=== PATIENT | male | born 1965 | race Caucasian/White ===

== ENCOUNTER 2019-03-25 13:20 | Inpatient (IN) | payer MEDICAID, MEDICARE ==
[~2019-03-25] VITALS: Ht 177.8 cm; Wt 95.3 kg
[~2019-03-25 13:20] MED LIST: KEP500 PO; PHEN100C4 PO
--- NOTE | 2019-03-25 13:20 | NUR ---
Patient BIBA ALS accompanied by Guanakito RILEY, transferred to bed 1. RN evaluating patient at bedside.
[2019-03-25 13:28] VITALS: BP 139/73
--- NOTE | 2019-03-25 13:30 | NUR ---
RIGO FROM DAY CAMP PROGRAM PER EMS PATIENT HAD SEIZURE X 3 PRIOR TO ARIVAL LASTING 1 MINUTE EACH STARTING AT 12:44PM. PATIENT CONFUSED, OPENED EYES TO VERBAL COMMAND. B/S AT BEDSIDE 168, PRIOR TO ARIVAL 213. 22 G RAC BY EMS. O2 AT 2L NASAL CANULA. HX: SEIZURES Addendum: 03/25/19 at 1410 by [email or web address] no seizure at arrival.
[2019-03-25] MEDS ORDERED: LORazepam 2 MG/ML VIAL ONE ×2 (13:40→13:46)
--- NOTE | 2019-03-25 13:40 | NUR ---
seizure 1 mins.
[2019-03-25] MEDS ORDERED: levETIRAcetam 100 MG/ML VIAL IV ONE ×2 (13:42→20:23)
[2019-03-25] MEDS ORDERED: LORazepam 2 MG/ML VIAL IVP ONE ×2 (13:55→15:35)
[2019-03-25] MEDS ORDERED: levETIRAcetam 1,000 MG in NACL 0.9% 100 ML IV ONE (13:55)
--- NOTE | 2019-03-25 14:19 | NUR ---
PATIENT STATES HE WANTS IV REMOVED AND REQUESTS WATER, ASKING CAREGIVER.
--- NOTE | 2019-03-25 14:19 | NUR ---
CAREGIVER, ISABEL, AT BEDSIDE
--- NOTE | 2019-03-25 14:20 | NUR ---
PATIENT UNABLE TO ANSWER LAST NAME, FIRST NAME ONLY.
[2019-03-25 14:23] LABS: BASOPHILS # (AUTO) 0.1 K/uL (0.00-0.22); EOSINOPHILS # (AUTO) 0.3 K/uL (0-0.4); EOSINOPHILS % (AUTO) 4.7 % (0.0-4.0); HEMATOCRIT 41.3 % (36-52); HEMOGLOBIN 14.2 g/dL (12.0-18.0); LYMPHOCYTES # (AUTO) 2.1 K/uL (2.0-11.5); LYMPHOCYTES % (AUTO) 27.7 % (20.5-51.1); MEAN CORPUSCULAR HEMOGLOBIN 33 pg (27-31); MEAN CORPUSCULAR HGB CONC 34 g/dL (33-37); MEAN CORPUSCULAR VOLUME 96.8 fL (80-94); MONOCYTES # (AUTO) 0.4 K/uL (0.8-1.0); MONOCYTES % (AUTO) 5.9 % (1.7-9.3); NEUTROPHILS # (AUTO) 4.5 K/uL (1.8-7.7); NEUTROPHILS % (AUTO) 60.7 % (42.2-75.2); PLATELET COUNT (AUTO) 220 K/uL (140-450); RED BLOOD CELL COUNT(AUTO) 4.27 MIL/uL (4.20-6.10); RED CELL DISTRIBUTION WIDTH 12.5 % (11.6-13.7); WHITE BLOOD COUNT (AUTO) 7.4 K/uL (4.8-10.8)
--- NOTE | 2019-03-25 14:32 | NUR ---
APPROVED FLUIDS, NO FOOD AT THIS TIME FOR PATIENT Addendum: 03/25/19 at 1454 by MED1 BRITT N/V AT THIS TIME.
--- NOTE | 2019-03-25 14:32 | NUR ---
MD AT BEDSIDE. Addendum: 03/25/19 at 1434 by TRINITY PATIENT ABLE TO STATE LAST NAME TO MD, NOT FIRST NAME. Addendum: 03/25/19 at 1434 by TRINITY PATIENT STATED LAST NAME TO RN AT BEDSIDE, NOT TO MD.
[2019-03-25 14:55] LABS: ANION GAP 15.1 (8-16); CARBON DIOXIDE 25.5 mmol/L (21-32); CREATININE 0.8 mg/dL (0.7-1.3); POTASSIUM 3.6 mmol/L (3.5-5.1)
[2019-03-25] MEDS ORDERED: KEN.1C TP (14:55)
[2019-03-25] MEDS ORDERED: FEXO180T82 PO (14:55)
[2019-03-25] MEDS ORDERED: LACO50TA PO (14:55)
[2019-03-25] MEDS ORDERED: VITD1000 PO (14:55)
[2019-03-25] MEDS ORDERED: OXCA300T PO (15:01)
[2019-03-25] MEDS ORDERED: LEVE500T18 PO ×3 (15:01→21:37)
[2019-03-25] MEDS ORDERED: OXCA150T2 PO (15:01)
[2019-03-25] MEDS ORDERED: [UNRECOGNIZED DRUG - CODE] PO (15:01)
[2019-03-25] MEDS ORDERED: FLO44 INH (15:01)
[2019-03-25 15:05] LABS: ALBUMIN 3.5 g/dL (3.4-5.0); TOTAL BILIRUBIN 0.4 mg/dL (0.0-1.0)
--- NOTE | 2019-03-25 15:30 | NUR ---
CALLED DR. JOHNSTON OFFICE AND NOTIFIED ABOUT ADMITTING PT. DR. MOURA WAS THE PINION POLISHER DOCTOR AND WAITING FOR CALL BACK.
--- NOTE | 2019-03-25 15:30 | NUR ---
WITNESSED SEIZURE. VERBAL ORDER FROM ED MD FOR 2MG ATIVAN IVP.
--- NOTE | 2019-03-25 16:06 | NUR ---
CONTACT INFO: JEYSON [phone]
[2019-03-25] MEDS ORDERED: ONDANSETRON 4 MG/2 ML VIAL IVP PRN (17:20)
[2019-03-25] MEDS ORDERED: ACETAMINOPHEN 325 MG TAB PO PRN (17:20)
[2019-03-25] MEDS ORDERED: LORazepam 2 MG/ML VIAL IVP PRN ×2 (17:25→23:25)
--- NOTE | 2019-03-25 17:30 | NUR ---
X RAY AT BEDSIDE
[2019-03-25 18:15] LABS: PROTHROMBIN TIME 9.9 secs (10.8-13.4)
[2019-03-25 18:27] LABS: FREE T4 (FREE THYROXINE) 0.8 ng/dL (0.76-1.46); MAGNESIUM 1.6 mg/dL (1.8-2.4); THYROID STIMULATING HORMONE 0.71 uIU/mL (0.34-3.74)
--- NOTE | 2019-03-25 18:56 | NUR ---
Patient being reevaluated by physician at bedside.
--- NOTE | 2019-03-25 18:56 | NUR ---
pt alert, oreited to name, last name & .
--- NOTE | 2019-03-25 19:15 | NUR ---
Patient will be admitted to care of DR. DOWD. Admited to ICU . Will go to room 7. Belongings list completed. Report to RADHA SHERIFF.
--- NOTE | 2019-03-25 19:30 | NUR ---
RECEIVED REPORT FROM ED NURSE. PT AAOX3, FOLLOWING COMMANDS. PT STATES AURA OCCURS WHEN IN HIGH STRESSED ENVIROMENT. SEIZURE PRECAUTIONS IN PLACE. LUNGS EXPIRATORY WHEEZE NOTED DENIES CP SOB @ THIS TIME. NSR ON MONITOR 70-80S NO ECTOPY NOTED. +2 RADIAL/+1 PEDAL PULSES. ABDOMEN SOFT ROUND NON DISTENDED. TOLERATING PO INTAKE. VOIDS IN URINAL. SKIN INTACT. PERIPHERAL IV TO R AC 20G SL. DENIES PAIN @ THIS TIME. BED LOCKED IN LOWEST POSITION. CALL LIGHT WITHIN REACH
--- NOTE | 2019-03-25 19:40 | NUR ---
DR BROWN AND DR GUZMÁN @ BEDSIDE
[2019-03-25 20:00] VITALS: BP 145/82
[2019-03-25] MEDS: DOCUSATE SODIUM 100 MG GELCAP PO SCH (20:32)
[2019-03-25] MEDS: levETIRAcetam 1,500 MG in NACL 0.9% 100 ML IV SCH (20:32)
[2019-03-25] MEDS ORDERED: OXcarbazepine 150 MG TAB PO SCH (21:00)
[2019-03-25 22:00] VITALS: BP 103/88
[2019-03-25 22:02] LABS: APPEARANCE,URINE CLEAR (CLEAR); BILIRUBIN,URINE NEGATIVE (NEGATIVE); BLOOD, URINE NEGATIVE (NEGATIVE); COLOR,URINE YELLOW (YELLOW); LEUKOCYTE ESTERASE ,URINE NEGATIVE (NEGATIVE); NITRITE, URINE NEGATIVE (NEGATIVE); PH,URINE 5.5 (5.0-9.0); UGLUCOSE NEGATIVE (NEGATIVE)
[2019-03-25 22:07] LABS: BARBITURATE, URINE NEG. ng/ml (NEG <=200); BENZODIAZEPINE, URINE POS. ng/mL (NEG <=200); CANNABINOID, URINE NEG. ng/mL (NEG <=50); COCAINE, URINE NEG. ng/mL (NEG <=300); OPIATE, URINE NEG. ng/mL (NEG <=2000); PHENCYCLIDINE SCREEN,URINE NEG. ng/mL (NEG <=25)
[2019-03-25] MEDS ORDERED: MAG SULF 2000 MG/WATER PREMIX 50 ML IV SCH (22:30)
--- NOTE | 2019-03-25 23:11 | NUR ---
PT TAKEN TO CT
[2019-03-25] MEDS ORDERED: [UNRECOGNIZED DRUG - OTHER] MC ONE (23:12)
--- NOTE | 2019-03-25 23:30 | NUR ---
PT RETURN FROM CT; NO ACUTE DISTRESS NOTED.
[2019-03-26] VITALS: BP 153/79
[2019-03-26 02:00] VITALS: BP 135/68
--- NOTE | 2019-03-26 02:00 | NUR ---
PT LAYING IN BED EYES CLOSED. NO SEIZURE ACTIVITY NOTED. VSS. WILL CONTINUE TO OBSERVE
[2019-03-26 04:00] VITALS: BP 129/82
--- NOTE | 2019-03-26 04:30 | NUR ---
AM CARE OFFERED; PT DECLINED FOR NOW. PT STATED HE WOULD LIKE TO REST MORE THIS MORNING. VSS. WILL CONTINUE TO OBSERVE.
[2019-03-26 06:00] VITALS: BP 128/78
[2019-03-26 06:00] LABS: CARBON DIOXIDE 28.2 mmol/L (21-32); CREATININE 0.8 mg/dL (0.7-1.3); POTASSIUM 4.2 mmol/L (3.5-5.1)
[2019-03-26 06:02] LABS: CHOL/HDL RATIO 4.7 (1-4.5); MAGNESIUM 1.7 mg/dL (1.8-2.4)
[2019-03-26 06:11] LABS: BASOPHILS # (AUTO) 0.1 K/uL (0.00-0.22); BASOPHILS % (AUTO) 0.8 % (0.0-2.0); EOSINOPHILS # (AUTO) 0.5 K/uL (0-0.4); EOSINOPHILS % (AUTO) 7.1 % (0.0-4.0); HEMATOCRIT 40.9 % (36-52); LYMPHOCYTES # (AUTO) 2.5 K/uL (2.0-11.5); LYMPHOCYTES % (AUTO) 38.4 % (20.5-51.1); MEAN CORPUSCULAR HEMOGLOBIN 33 pg (27-31); MEAN CORPUSCULAR HGB CONC 34 g/dL (33-37); MEAN CORPUSCULAR VOLUME 97.5 fL (80-94); MONOCYTES # (AUTO) 0.4 K/uL (0.8-1.0); MONOCYTES % (AUTO) 5.5 % (1.7-9.3); NEUTROPHILS # (AUTO) 3.2 K/uL (1.8-7.7); NEUTROPHILS % (AUTO) 48.2 % (42.2-75.2); PLATELET COUNT (AUTO) 219 K/uL (140-450); RED BLOOD CELL COUNT(AUTO) 4.19 MIL/uL (4.20-6.10); RED CELL DISTRIBUTION WIDTH 12.5 % (11.6-13.7); WHITE BLOOD COUNT (AUTO) 6.6 K/uL (4.8-10.8)
--- NOTE | 2019-03-26 07:00 | NUR ---
REPORT GIVEN TO DAY SHIFT FOR CONTINUITY OF CARE
--- NOTE | 2019-03-26 07:30 | NUR ---
RECEIVED PATIENT ON BED.INITIAL ASSESSMENT DONE TO PATIENT.NO CO PAIN NOR ANY DISCOMFORT.RIGHT AC IV PATENT AND INTACT.NSR ON THE MONITOR.
--- NOTE | 2019-03-26 07:48 | NUR ---
PATIENT HAS BEEN SCREENED AND CATEGORIZED LOW NUTRITION RISK. PATIENT WILL BE SEEN WITHIN 7 DAYS OF ADMISSION. 04/02/[address]
[2019-03-26 08:00] VITALS: BP 139/77
[2019-03-26] MEDS ORDERED: MAG SULF 2000 MG/WATER PREMIX 50 ML IV SCH (09:00)
[2019-03-26] MEDS ORDERED: PANTOPRAZOLE 40 MG INJ VIAL IVP SCH (09:00)
[2019-03-26] MEDS ORDERED: OXcarbazepine 150 MG TAB PO SCH (09:00)
[2019-03-26] MEDS: DOCUSATE SODIUM 100 MG GELCAP PO SCH (09:48)
[2019-03-26 10:00] VITALS: BP 143/74
[2019-03-26] MEDS: levETIRAcetam 1,500 MG in NACL 0.9% 100 ML IV SCH (10:16)
--- NOTE | 2019-03-26 11:30 | NUR ---
Pt wanted to go to the bathroom.Informed pt that we dont have a bathroom and can use either a commode or bedpan.Patient got upset and wanted to talk to the commodity supervisor.Notified Reuben -commodity supervisor about the situation.Notified dr Tobi Forde and said if can write the transfer order as is planning to transfer the pt to floor.
--- NOTE | 2019-03-26 12:00 | NUR ---
Pt refused BP to be taken.Rn instructed the importance of checking but pt refused and stated I wanna go home. Dr cooper aware.
--- NOTE | 2019-03-26 12:10 | NUR ---
Patient doesnt want to transfer to the floor and wanted to go home.Notified Apprenticeship Training Representative and dr Forde.
--- NOTE | 2019-03-26 12:15 | NUR ---
Per dr Forde texted dr House if patient can go home but still awaiting response.Notified patient and wanted to go home if he doesnt respond right away.Rn notified the risk involved in leaving against medical advice but patient still wanted to leave against medical advice and wanted to sign the papers.
--- NOTE | 2019-03-26 12:19 | NUR ---
Notified Mail Processing Associate Nazia Waterman and dr Forde that pt wanted to sign ama.
--- NOTE | 2019-03-26 12:20 | NUR ---
Patient doesnt want to stay and transfer to another floor because he wanted to go home and see his family from [place].Rn instructed about the risk of signing AMA but pt still wanted to leave against medical advice.Patient signed AMA form.Dr Forde will see patient .
--- NOTE | 2019-03-26 12:27 | NUR ---
Dr Forde in the room and talking to the patient.
--- NOTE | 2019-03-26 12:28 | NUR ---
Glass Washer Reuben talking to the patient and still wanted to go home.
--- NOTE | 2019-03-26 12:30 | NUR ---
Called Santana Fernandez -ambulatory care coordinator of patient and made aware patient signed AMA and needs to pick him.
--- NOTE | 2019-03-26 12:36 | NUR ---
CALLED LIZZ BENAVIDES PH # [phone] TO INFORM ABOUT PT SIGN AMA, SHE SAID WRONG NUMBER SHE DOES NOT KNOW HIM. CALLED PH# [phone], THIS NUMBER IS NO LONGER IN SERVICE. ALSO CALLED #[phone] AND LEFT MESSAGE AND CALL BACK NUMBER TO CALL US.
--- NOTE | 2019-03-26 13:30 | NUR ---
Removed right ac saline lock.pt tolerated well.
--- NOTE | 2019-03-26 13:35 | NUR ---
Patient left accompanied by Santana-caregiver .No co pain nor any discomfort.Pt allowed rn to check sl=177/90,hr=74,pox=95 percent,RR=20.Pt asymptomatic.
== END 2019-03-26 13:35 | disposition left against medical advice (07) | DRG 53 ==
LOC: MED 13:20 → MIC 17:22
PROVIDERS: ADMIT General Practice; ATTEND General Practice
DX: R56.9 Unspecified convulsions (principal); E66.01 Morbid (severe) obesity due to excess calories; K76.0 Fatty (change of) liver, not elsewhere classified; E83.42 Hypomagnesemia; E78.5 Hyperlipidemia, unspecified; Z68.30 Body mass index [BMI] 30.0-30.9, adult; F15.90 Other stimulant use, unspecified, uncomplicated; Z83.3 Family history of diabetes mellitus; Z82.49 Family history of ischemic heart disease and other diseases of the circulatory system; Z87.891 Personal history of nicotine dependence; G47.33 Obstructive sleep apnea (adult) (pediatric); F43.9 Reaction to severe stress, unspecified; Z53.29 Procedure and treatment not carried out because of patient's decision for other reasons
CPT/HCPCS: 36415; 70450; 71045; 76705; 80048; 80053; 80305; 81003; 82140; 82150; 82948; 83036; 83690; 83735; 83880; 84100; 84439; 84443; 84484; 85025; 85610; 85730; 87081; 93005; 96365; 96375; 96376; 99285; C9113; J1644; J1953; J2060; J3475; Q0092